=== PATIENT | female | born 1980 | race American Indian/Alaskan Native ===

== ENCOUNTER 2019-06-03 08:08 | Day surgery (SDC) | payer MEDICAID ==
[2019-06-03] MEDS ORDERED: LACTATED RINGERS 1,000 ML IV SCH (09:02)
--- NOTE | 2019-06-03 09:08 | Anesthesia Consultation ---
Anesthesia Consult and Med Hx Date of service: 06/03/19 - Airway Anesthetic Teeth Evaluation: Good ROM Head & Neck: Adequate Mental/Hyoid Distance: Adequate Mallampati Class: Class II Intubation Access Assessment: Good - Pulmonary Exam CTA: Yes - Cardiac Exam Cardiac Exam: No Murmur - Pre-Operative Health Status ASA Pre-Surgery Classification: ASA2 - Pulmonary Hx Smoking: Yes (Former) Hx Asthma: Yes - Central Nervous System Hx Psychiatric Problems: No - Other Systems Hx Alcohol Use: Yes (Occas) Hx Cancer: No
--- NOTE | 2019-06-03 09:09 | Anesthesia Day of Surgery ---
Anesthesia Day of Surgery - Day of Surgery Patient Examined: Yes Patient H&P Reviewed: Yes Patient is NPO: Yes
[2019-06-03] MEDS ORDERED: CELECOXIB 200 MG CAP PO NR (10:00)
[2019-06-03] MEDS ORDERED: GABAPENTIN 300 MG CAP PO NR (10:00)
[2019-06-03] MEDS ORDERED: FAMOTIDINE 20 MG TAB PO NR (10:00)
[2019-06-03] MEDS ORDERED: MIDAZOLAM 2 MG/2 ML INJ IV NR (10:00)
[2019-06-03] MEDS ORDERED: BUPIVACAINE/PF (0.5%) 5 MG/1 ML 30 ML VIAL INFILTRATI ONE ×2 (10:26→14:45)
--- NOTE | 2019-06-03 10:40 | Short Stay Summary ---
Short Stay Documentation Date of service: 06/03/19 Narrative H&P: 39y/o with acute onset of LLQ pain that has persists for over 2 weeks with worsening symptoms. The patient was evaluated in the ED with findings of leiomyomas and bilateral ovarian cysts. The patient states the pain is directed in the left pelvis. She requests surgical management. - History Principal diagnosis: Acute pelvic pain Past Medical History: other (asthma; fibroid) Past Surgical History: Other (tubal ligation) Social history: - Allergies and Medications Current Medications: Allergies codeine Allergy (Verified 06/02/19 15:15) Angioedema ketorolac tromethamine [From Toradol] Allergy (Verified 10/19/15 11:45) Angioedema latex Allergy (Verified 06/02/19 15:15) Rash tramadol Allergy (Verified 10/19/15 11:45) Angioedema Home Medications Medication Instructions Recorded Confirmed Last Taken Type Albuterol Sulfate [Proventil Hfa] 6.7 gm IH Q4H PRN 06/02/19 06/03/19 04/03/19 History Ibuprofen [Motrin 800 MG tab] 1 tab PO TID PRN 06/03/19 06/03/19 06/02/19 22:00 History Active Medications Famotidine (Pepcid) 20 mg PO PREOP NR Stop: 06/03/19 16:00 Last Admin: 06/03/19 10:18 Dose: 20 mg Documented by: Gabapentin (Gabapentin) 600 mg PO PREOP NR Stop: 06/03/19 13:00 Last Admin: 06/03/19 10:18 Dose: 600 mg Documented by: Lactated Ringer's (Lactated Ringers) 1,000 mls @ 100 mls/hr IV DIRECT ALONZO Last Admin: 06/03/19 10:05 Dose: 100 mls/hr Documented by: Midazolam HCl (Versed) 2 mg IV PREOP NR Stop: 06/03/19 23:59 - Physical exam General appearance: no acute distress Integumentary: no rash HEENT: Atraumatic Lungs: Clear to auscultation Breasts: deferred Heart: Regular rate Gastrointestinal: normal Female Genitourinary: deferred Rectal Exam: deferred Extremities: no ischemia Neurological: Normal gait - Brief post op/procedure progress note Date of procedure: 06/03/19 Pre-op diagnosis: acute pelvic pain Post-op diagnosis: same Procedure: Laparoscopy Left ovarian cystectomy Anesthesia: GETA Surgeon: GRANT GEORGE Estimated blood loss: minimal Pathology: list (ovarian cyst) Specimen disposition: to lab Condition: stable - Hospital course Hospital course: The patient was admitted the day of surgery and underwent a laparoscopy and ovarian cystectomy. Please see operative note for details of surgery. Postoperative course was uneventful. - Disposition Condition at discharge: Good Disposition: DC-01 TO HOME OR SELFCARE Short Stay Discharge Plan Activity: other (pelvic rest for 1 week) Diet: regular Additional Instructions: Scheduled follow-up with Dr. House in 1 week
[2019-06-03] MEDS ORDERED: PROPOFOL 200 MG/20 ML VIAL IV ONE (13:19)
[2019-06-03] MEDS ORDERED: ROCURONIUM 50 MG/5 ML INJ IV ONE (13:19)
[2019-06-03] MEDS ORDERED: LIDOCAINE MPF (2%) 20 MG/1 ML VIAL 5 ML ONE (13:19)
[2019-06-03] MEDS ORDERED: fentaNYL 100 MCG/2 ML INJ ONE ×2 (13:19→14:55)
[2019-06-03] MEDS ORDERED: dexAMETHasone 20 MG/5 ML VIAL ONE (14:10)
[2019-06-03] MEDS ORDERED: ONDANSETRON 4 MG/2 ML INJ ONE (14:10)
[2019-06-03] MEDS ORDERED: HYDROmorphone 1 MG/1 ML INJ ONE ×2 (14:12→15:32)
[2019-06-03] MEDS ORDERED: SODIUM CHLORIDE 0.9% IRRIG SOLN 2000 ML IR ONE (14:12)
[2019-06-03] MEDS ORDERED: SODIUM CHLORIDE 0.9% IRR 1,500 ML BOTTLE IR ONE (14:12)
[2019-06-03] MEDS ORDERED: GLYCOPYRROLATE 0.4 MG/2 ML INJ ONE (14:34)
[2019-06-03] MEDS ORDERED: NEOSTIGMINE 10MG/10 ML INJ MDV ONE (14:34)
--- NOTE | 2019-06-03 14:56 | Operative Report ---
Operative Report Operative Report: Date of surgery: 06/03/2019 Preoperative diagnosis: Acute pelvic pain; ovarian cyst; leiomyoma Postoperative diagnosis: Same as above Procedure: Laparoscopy; left ovarian cystectomy Surgeon: Laura House M.D. Anesthesia: General endotracheal anesthesia Estimated blood loss: Minimal Findings: Pedunculated leiomyoma; left ovarian cyst Pathology: Ovarian cyst Indication: 39-year-old with a history of worsening pelvic pain. Pelvic ultrasound demonstrated evidence of a leiomyoma and ovarian cyst. The patient elected to undergo surgical management. Procedure: The patient was taken to the operating room and given general endotracheal anesthesia without complication. The patient is prepped and draped in a normal sterile fashion. A bivalve speculum was placed in the patient's vagina and a single-tooth tenaculum was placed on the anterior lip of the cervix .A uterine acorn manipulator was placed, and the bivalve speculum was then removed. Attention was then turned to the patient's abdomen where a 5 mm infraumbilical skin incision was then made. A Veress needle was placed and peritoneal entry was verified water-filled syringe. Insufflation of the peritoneal cavity was performed with CO2 gas. A 5 mm trocar was placed and the laparoscope was then inserted. The patient was then placed in Trendelenburg. A 10 mm suprapubic skin incision was then made. Under direct visualization a 10 mm trocar was then placed. An additional left lateral 5 mm trocar was also placed under direct visualization. General survey of the patient's abdomen revealed a pedunculated leiomyoma originating from the fundus of the uterus the left ovary had evidence of a complex ovarian cyst. The tubes were consistent with a prior tubal ligation. The right ovary was normal in appearance. The left ovary was then grasped. The monopolar scissors were used to excise the ovarian cortex. The ovarian cyst was transected from the ovarian tissue. Hemoblast was placed over the left ovary. An Endo Catch bag was placed through the 10 mm trocar. The intact ovarian cyst were placed in the bag and removed. The fascial defect of the 10 mm incision was closed with 0 Vicryl using the Kevin Greer device. The 10 and 5 mm trocar were then removed. The pneumoperitoneum was then released. The 5 mm trocar laparoscope was then removed. The skin incisions were then closed with 4-0 Monocryl. The incisions were injected with quarter percent Marcaine. Dressings were applied to the incision. The vaginal instruments were then removed atraumatically. Then successfully extubated and taken to the recovery room. All sponge laps and needle counts were correct x2.
[2019-06-03] MEDS: HYDROmorphone 1 MG/1 ML INJ IV PRN ×2 (15:30→15:46)
[2019-06-03 15:37] VITALS: BP 127/71
== END 2019-06-03 08:09 | disposition home or self-care (01) ==
LOC: OR 08:08
PROVIDERS: ATTEND Obstetrics & Gynecology
DX: N83.202 Unspecified ovarian cyst, left side (principal); J45.909 Unspecified asthma, uncomplicated; Z87.891 Personal history of nicotine dependence; Z91.040 Latex allergy status; Z88.5 Allergy status to narcotic agent; Z88.8 Allergy status to other drugs, medicaments and biological substances; Z90.49 Acquired absence of other specified parts of digestive tract; Z98.51 Tubal ligation status; Z72.89 Other problems related to lifestyle; Z98.890 Other specified postprocedural states; Z86.711 Personal history of pulmonary embolism
CPT/HCPCS: 58662; 81025; 88305; A4217; J1100; J1170; J2250; J2405; J2704; J2710; J3010; J7120

== ENCOUNTER 2019-11-30 11:06 | Day surgery (SDC) | payer MEDICAID | END 2019-12-02 23:59 | disposition home or self-care (01) | LOC: OR 11:06 | PROVIDERS: ATTEND Obstetrics & Gynecology | DX: L91.0 Hypertrophic scar (principal); Z11.59 Encounter for screening for other viral diseases; Z53.8 Procedure and treatment not carried out for other reasons; J45.909 Unspecified asthma, uncomplicated; K21.9 Gastro-esophageal reflux disease without esophagitis; E66.9 Obesity, unspecified; Z88.5 Allergy status to narcotic agent; Z91.040 Latex allergy status; Z79.899 Other long term (current) drug therapy; Z87.891 Personal history of nicotine dependence; Z86.711 Personal history of pulmonary embolism; Z90.49 Acquired absence of other specified parts of digestive tract; Z98.51 Tubal ligation status; Z72.89 Other problems related to lifestyle; Z98.890 Other specified postprocedural states; Z80.41 Family history of malignant neoplasm of ovary; Z88.8 Allergy status to other drugs, medicaments and biological substances; Z68.41 Body mass index [BMI] 40.0-44.9, adult | CPT/HCPCS: U0003-CS ==

== ENCOUNTER 2019-12-03 10:37 | Day surgery (SDC) | payer MEDICAID ==
--- NOTE | 2019-12-03 09:44 | Short Stay Summary ---
Short Stay Documentation Date of service: 12/03/19 Narrative H&P: 39y/o with a history of hypertrophic scar formation. She has a large pedunculated lesion in her right axilla and multiple lesions on her mons. She reports pain and discomfort. She states feeling disfigured by the lesions. - History Principal diagnosis: Keloid scar Past Medical History: other (asthma) Past Surgical History: Other (laparoscopy/ovarian cystectomy; tubal ligation) Social history: - Allergies and Medications Current Medications: Allergies codeine Allergy (Verified 11/25/19 10:06) Angioedema ketorolac tromethamine [From Toradol] Allergy (Verified 11/25/19 10:06) Angioedema latex Allergy (Verified 11/25/19 10:06) Rash tramadol Allergy (Verified 11/25/19 10:06) Angioedema Home Medications Medication Instructions Recorded Confirmed Last Taken Type Albuterol Sulfate [Proventil Hfa] 6.7 gm IH Q4H PRN 06/02/19 11/25/19 04/03/19 History Fluticasone/Salmeterol(Nf) [Advair 2 puff IH PRN PRN 11/25/19 11/25/19 Unknown History HFA 115-21 mcg] Multivitamins Liq [Multiple 118 ml PO DAILY 11/25/19 11/25/19 Unknown History Vitamin Liq (Theragran)] - Physical exam General appearance: no acute distress Integumentary: no rash HEENT: Atraumatic Lungs: Clear to auscultation Breasts: deferred Heart: Regular rate Gastrointestinal: normal Female Genitourinary: deferred Rectal Exam: deferred - Brief post op/procedure progress note Date of procedure: 12/03/19 Pre-op diagnosis: Hypertrophic scar Post-op diagnosis: same Procedure: Keloid scar revision Anesthesia: MAC Surgeon: GRANT GEORGE Estimated blood loss: minimal Pathology: list (Keloid scar) Specimen disposition: to lab Condition: stable - Hospital course Hospital course: The patient was admitted the day of surgery underwent excision revision of her hypertrophic scar. Please see operative note for details of surgery. Postoperative course was uneventful. - Disposition Condition at discharge: Good Disposition: DC-01 TO HOME OR SELFCARE - Discharge Diagnoses (1) Hypertrophic scar of skin Status: Acute Short Stay Discharge Plan Activity: no restrictions Diet: regular Additional Instructions: Schedule follow-up with Dr. George in 2 weeks Prescriptions: Ibuprofen [Motrin] 800 mg PO Q8HR PRN #30 tablet PRN Reason: Pain , Severe (7-10) HYDROcodone/APAP 5-325 [[place] 5/325] 1 each PO Q6HR PRN #15 tablet PRN Reason: Pain
[~2019-12-03 10:37] MED LIST: TRIAMCINOLONE 40 MG/1 ML INJ IM ONE; ceFAZolin/Water 2 GM/20 ML 2 GM/20 ML SYRINGE IV NR
[2019-12-03] MEDS ORDERED: ONDANSETRON 4 MG/2 ML INJ IV PRN (11:38)
--- NOTE | 2019-12-03 11:39 | Anesthesia Day of Surgery ---
Anesthesia Day of Surgery - Day of Surgery Patient Examined: Yes Patient H&P Reviewed: Yes Patient is NPO: Yes
--- NOTE | 2019-12-03 11:40 | Anesthesia Consultation ---
Anesthesia Consult and Med Hx Date of service: 12/03/19 - Airway Anesthetic Teeth Evaluation: Good ROM Head & Neck: Adequate Mental/Hyoid Distance: Adequate Mallampati Class: Class II Intubation Access Assessment: Good - Pre-Operative Health Status ASA Pre-Surgery Classification: ASA2 Proposed Anesthetic Plan: General - Pulmonary Hx Smoking: Yes (Former; QUIT 2016) Hx Asthma: Yes (PRN INHALER) Hx Respiratory Symptoms: No (+2FS) - Central Nervous System Hx Psychiatric Problems: No - Gastrointestinal Hx Ulcer: Yes (2005) - Other Systems Hx Alcohol Use: Yes (Occas) Hx Substance Use: No Hx Cancer: No Hx Obesity: Yes (BMI 41)
[2019-12-03] MEDS ORDERED: LACTATED RINGERS 1,000 ML IV SCH (12:00)
[2019-12-03] MEDS ORDERED: diphenhydrAMINE 50 MG CAP PO NR (12:00)
[2019-12-03] MEDS ORDERED: MIDAZOLAM 2 MG/2 ML INJ IV NR (12:00)
[2019-12-03] MEDS ORDERED: FAMOTIDINE 20 MG TAB PO NR (12:00)
[2019-12-03] MEDS ORDERED: dexAMETHasone 20 MG/5 ML VIAL ONE (12:20)
[2019-12-03] MEDS ORDERED: LIDOCAINE MPF (2%) 20 MG/1 ML VIAL 5 ML ONE (12:20)
[2019-12-03] MEDS ORDERED: ONDANSETRON 4 MG/2 ML INJ ONE (12:20)
[2019-12-03] MEDS ORDERED: propofoL 200 MG/20 ML VIAL IV ONE ×2 (12:21→12:44)
[2019-12-03] MEDS ORDERED: fentaNYL 100 MCG/2 ML INJ ONE (12:21)
[2019-12-03] MEDS ORDERED: TRIAMCINOLONE 40 MG/1 ML INJ IM ONE ×2 (12:45→13:25)
[2019-12-03] MEDS ORDERED: HYDROmorphone 1 MG/1 ML INJ ONE (13:00)
[2019-12-03] MEDS ORDERED: SODIUM CHLORIDE 0.9% IRR 1,500 ML BOTTLE IR ONE (13:29)
--- NOTE | 2019-12-03 13:49 | Operative Report ---
Operative Report Operative Report: Date of procedure: December 03, 2019 Pre-operative diagnosis: Hypertrophic keloid scar Post-operative diagnosis: Same as above Procedure name(s): Keloid scar revision Surgeon: Laura He M.D. Lens Molder: None Estimated blood loss: Minimal Anesthesia: LMA Findings: Pedunculated hypertrophic scar in the right axilla; 4 hypertrophic scars involving the mons pubis Indication: 39-year-old -1-1-3 with a history of multiple keloid scars. The patient requested a removal and revision of the scar. Procedure The patient was taken to the operating room. Her general anesthesia was initiated. A timeout was performed that identified the patient and the procedure. The patient was prepped and draped in a normal sterile fashion. Attention was then turned to the patient's right axilla where she exhibited a large keloid scar that was pedunculated. The #15 blade was used to excise the p edunculated mass. The skin was reapproximated with 4-0 Monocryl in a subcuticular fashion. Attention was then turned to the patient's mons pubis. She had evidence of 4-5 keloid scars. The scar was grasped with a grasper. The lesions were excised with a #15 blade. The tissue bed was cauterized for hemostasis. The skin was reapproximated with 4-0 Monocryl in a subcuticular fashion. The surgical sites were injected with Kenalog 40 mg total of 8 mm were injected in multiple sites. Pressure dressing was placed across the incision. The patient was successfully extubated and taken to recovery room in stable condition. Pathology consisted of hypertrophic scars. All sponge laps and needle counts were correct x2
[2019-12-03] MEDS ORDERED: TRIAMCINOLONE 40 MG/1 ML INJ INTRALESIO SCH (14:00)
[2019-12-03] MEDS ORDERED: TRIAMCINOLONE 40 MG/1 ML INJ IM SCH (14:00)
[2019-12-03] MEDS: fentaNYL 100 MCG/2 ML INJ IV PRN ×2 (14:12→14:25)
[2019-12-03 15:57] VITALS: BP 125/77
--- NOTE | 2019-12-03 16:16 | Post Anesthesia Evaluation ---
- Post Anesthesia Evaluation Patient Participated: Yes Airway Patent: Yes Stable Respiratory Function: Yes Nausea/Vomiting: No Temp > 96.8F: Yes Pain Manageable: Yes Adequeate Hydration: Yes Anesthesia Complications: No Block Receding Appropriately: Not Applicable Patient on Ventilator: No
== END 2019-12-03 10:38 | disposition home or self-care (01) ==
LOC: OR 10:37
PROVIDERS: ATTEND Obstetrics & Gynecology
DX: L91.0 Hypertrophic scar (principal); J45.909 Unspecified asthma, uncomplicated; K21.9 Gastro-esophageal reflux disease without esophagitis; E66.9 Obesity, unspecified; Z88.5 Allergy status to narcotic agent; Z91.040 Latex allergy status; Z79.899 Other long term (current) drug therapy; Z90.49 Acquired absence of other specified parts of digestive tract; Z98.51 Tubal ligation status; Z72.89 Other problems related to lifestyle; Z98.890 Other specified postprocedural states; Z86.711 Personal history of pulmonary embolism; Z80.41 Family history of malignant neoplasm of ovary; Z68.41 Body mass index [BMI] 40.0-44.9, adult; Z88.8 Allergy status to other drugs, medicaments and biological substances
CPT/HCPCS: 11406; 81025; 88305; J0690; J1100; J1170; J2405; J2704; J3010; J3301; J7120

== ENCOUNTER 2020-02-24 07:56 | Observation (INO) | payer MEDICAID ==
[2020-02-23 09:25] LABS: Basophils # (Auto) 0.1 K/mm3 (0.0-0.1); Basophils % (Auto) 0.8 % (0.0-1.8); Eosinophils # (Auto) 0.2 K/mm3 (0.0-0.4); Eosinophils % (Auto) 1.6 % (0.0-4.3); Hematocrit 34.8 % (30.3-42.9); Hemoglobin 11.5 gm/dl (10.1-14.3); Lymphocytes # (Auto) 3.2 K/mm3 (1.2-5.4); Lymphocytes % (Auto) 27.6 % (13.4-35.0); Mean Corpuscular HGB Conc 33 % (30-34); Mean Corpuscular Volume 83 fl (79-97); Monocytes # (Auto) 0.6 K/mm3 (0.0-0.8); Monocytes % (Auto) 4.9 % (0.0-7.3); Platelet Count 438 K/mm3 (140-440); Red Cell Distribution Width 15.3 % (13.2-15.2)
--- NOTE | 2020-02-23 17:06 | History and Physical Report ---
History of Present Illness Date of examination: 02/24/20 Date of admission: 02/24/2020 Chief complaint: uterine fibroids History of present illness: 39y/o with symptomatic uterine fibroids. The patient reports heavy painful menses. Pelvic ultrasound demonstrated a uterine size of 9.4cm with the largest myoma being 3.1cm. Other treatment options have been discussed. The patient elects to proceed with a robotic hysterectomy and salpingectomy. Past History Past Medical History: asthma, other (uterine fibroids) Past Surgical History: other (laparoscopy/ovarian cystectomy; Tubal ligation) Social history: - Obstetrical History : 5 Para: 3 Hx # Term Pregnancies: 3 Number of Pregnancies: 1 Spontaneous Abortions: 1 Induced : 0 Number of Living Children: 3 Medications and Allergies Allergies Allergy/AdvReac Type Severity Reaction Status Date / Time codeine Allergy Angioedema Verified 02/17/20 16:42 ketorolac tromethamine Allergy Angioedema Verified 02/17/20 16:42 [From Toradol] latex Allergy Rash Verified 02/17/20 16:42 tramadol Allergy Angioedema Verified 02/17/20 16:42 Home Medications Medication Instructions Recorded Confirmed Last Taken Type Albuterol Sulfate [Proventil Hfa] 6.7 gm IH Q4H PRN 06/02/19 02/17/20 04/03/19 History Fluticasone/Salmeterol(Nf) [Advair 2 puff IH PRN PRN 11/25/19 02/17/20 11/26/19 09:00 History HFA 115-21 mcg] Ibuprofen [Motrin] 800 mg PO Q8HR PRN 02/17/20 02/17/20 Unknown History Naproxen [Naprosyn] 500 mg PO BID PRN 02/17/20 02/17/20 Unknown History Active Meds: Active Medications Acetaminophen (Tylenol) 1,000 mg PO PREOP ALONZO Stop: 02/24/20 22:00 Fentanyl (Sublimaze) 100 mcg IV ONCE PRN PRN Reason: sedation for nerve block Stop: 02/24/20 22:00 Gabapentin (Gabapentin) 600 mg PO PREOP NR Stop: 02/24/20 22:00 Lactated Ringer's (Lactated Ringers) 1,000 mls @ 100 mls/hr IV DIRECT ALONZO Stop: 02/24/20 23:59 Midazolam HCl (Versed) 2 mg IV PREOP NR Stop: 02/24/20 22:00 Review of Systems All systems: negative Genitourinary: vaginal bleeding, pelvic pain - Vital Signs Vital signs: Vital Signs Temp Pulse Resp BP Pulse Ox 98.4 F 72 20 137/91 100 02/23/20 09:00 02/23/20 09:00 02/23/20 09:00 02/23/20 09:00 02/23/20 09:00 Temp Pulse Resp BP Pulse Ox 98.4 F 72 20 137/91 100 02/23/20 09:00 02/23/20 09:00 02/23/20 09:00 02/23/20 09:00 02/23/20 09:00 - Physical Exam Breasts: Positive: deferred Cardiovascular: Regular rate Lungs: Positive: Clear to auscultation Abdomen: Positive: normal appearance Results Result Diagrams: 02/22/20 09:10 Abnormal lab results 02/22/20 Range/Units 09:10 WBC 11.5 H (4.5-11.0) K/mm3 MCH 27 L (28-32) pg RDW 15.3 H (13.2-15.2) % All other labs normal. Assessment and Plan - Patient Problems (1) Leiomyoma Status: Acute Plan to address problem: scheduled for robotic hysterectomy and bilateral salpingectomy (2) Dysmenorrhea Status: Acute (3) Pelvic pain in female Status: Acute
[~2020-02-24 07:56] MED LIST changes: +ACETAMINOPHEN 500 MG TAB PO SCH; +GABAPENTIN 300 MG CAP PO NR; +LACTATED RINGERS 1,000 ML IV SCH; +MIDAZOLAM 2 MG/2 ML INJ IV NR; -TRIAMCINOLONE 40 MG/1 ML INJ IM ONE; +fentaNYL 100 MCG/2 ML INJ IV PRN
[2020-02-24] MEDS ORDERED: BUPIVACAINE-EPINEPHRINE/PF 0.25%-1:200,000 (10 ML) VIAL INFILTRATI ONE (08:20)
[2020-02-24] MEDS ORDERED: dexAMETHasone 4 MG/ML VIAL ONE (08:20)
[2020-02-24] MEDS ORDERED: ONDANSETRON 4 MG/2 ML INJ IV PRN (08:26)
[2020-02-24] MEDS ORDERED: SCOPOLAMINE TRANSDERMAL PATCH 72 HR TD ONE (09:10)
--- NOTE | 2020-02-24 09:30 | Anesthesia Day of Surgery ---
Anesthesia Day of Surgery - Day of Surgery Patient Examined: Yes Patient H&P Reviewed: Yes Patient is NPO: Yes
--- NOTE | 2020-02-24 09:30 | Anesthesia Consultation ---
Anesthesia Consult and Med Hx Date of service: 02/24/20 - Airway Anesthetic Teeth Evaluation: Good ROM Head & Neck: Adequate Mental/Hyoid Distance: Adequate Mallampati Class: Class III Intubation Access Assessment: Possibly Difficult - Pulmonary Exam CTA: Yes - Cardiac Exam Cardiac Exam: RRR - Pre-Operative Health Status ASA Pre-Surgery Classification: ASA2 Proposed Anesthetic Plan: General Nerve Block: TAP - Pulmonary Hx Smoking: Yes (former smoker; quit 2016) Hx Asthma: Yes (last inhaler use 3 months) Hx Respiratory Symptoms: No - Cardiovascular System Hx Hypertension: No Hx Heart Attack/AMI: No Hx Percutaneous Transluminal Coronary Angioplasty (PTCA): No Hx Cardia Arrhythmia: No - Central Nervous System CVA: No - Gastrointestinal Hx Gastroesophageal Reflux Disease: Yes - Endocrine Hx Renal Disease: No Hx Liver Disease: No Hx Insulin Dependent Diabetes: No Hx Non-Insulin Dependent Diabetes: No Hx Thyroid Disease: No - Hematic Hx Anemia: Yes - Other Systems Hx Obesity: Yes (BMI 37) - Additional Comments Anesthesia Medical History Comments: No hx anesthetic complications but has significant nausea with PO opioids.
[2020-02-24] MEDS ORDERED: HYDROmorphone 1 MG/1 ML INJ ONE ×2 (10:10→12:32)
[2020-02-24] MEDS ORDERED: propofoL 200 MG/20 ML VIAL IV ONE (10:10)
[2020-02-24] MEDS ORDERED: ROCURONIUM 50 MG/5 ML INJ IV ONE (10:10)
[2020-02-24] MEDS ORDERED: LIDOCAINE MPF (2%) 20 MG/1 ML VIAL 5 ML ONE (10:10)
[2020-02-24] MEDS ORDERED: NEOMY 40 MG/POLYMYXIN B 200,000 UNITS/ML (GU) AMPULE IR ONE ×2 (10:15→11:56)
[2020-02-24] MEDS ORDERED: dexAMETHasone 20 MG/5 ML VIAL ONE (11:21)
[2020-02-24] MEDS ORDERED: ONDANSETRON 4 MG/2 ML INJ ONE (11:21)
[2020-02-24] MEDS ORDERED: TRIAMCINOLONE 40 MG/1 ML INJ ONE (11:36)
[2020-02-24] MEDS ORDERED: fentaNYL 100 MCG/2 ML INJ ONE (11:46)
--- NOTE | 2020-02-24 11:48 | Operative Report ---
Operative Report Operative Report: Date of surgery: February 24, 2020 Preoperative diagnoses: Symptomatic uterine fibroids; dysmenorrhea Postoperative diagnoses: Same as above Procedure: Robotic hysterectomy; bilateral salpingectomy Surgeon: Laura He M.D. Core Inspector: Caroline Barr Anesthesia: Gen. endotracheal anesthesia Estimated blood loss: 100 mL Pathology: Uterus, cervix, bilateral fallopian tubes, leiomyoma Indication: 39-year-old -1-1-3 with a history of symptomatic uterine fibroids. The patient is elected to undergo definitive surgical management. Procedure: The patient was taken to the operating room and given general endotracheal anesthesia without complication. She is prepped and draped in a normal sterile fashion. A bivalve speculum was placed in the patient's vagina and a single- tooth tenaculum placed on the anterior lip of the cervix. The uterus was sounded with the uterine sound. A [employer] uterine manipulator was placed in the bivalve speculum was then removed. Attention was then turned to the patient's abdomen where a millimeter supra umbilical skin incision was then made. A Veress needle was placed and peritoneal entry was verified water-filled syringe. Insufflation of the peritoneal cavity was performed with CO2 gas. The 12 mm trocar was then placed under direct visualization. An additional 8 mm trocar was placed on the patient's left and right lateral side just opposite of the supraumbilical trocar. An additional 8 mm right lateral trocar was then placed as the accessory port. The supraumbilical 12 mm trocar site was closed with the Kevin Greer device and 0-vicryl suture. The patient was then placed in steep Trendelenburg. The da Kyleigh robot was then engaged. A fenestrated forcep was placed in arm 2 and a vessel sealer was placed in arm 1. General survey of the abdomen and pelvis revealed an enlarged fibroid uterus with a sub-serosal leiomyoma on the fundus of the uterus. She had a small left ovarian cyst. The tubes were normal in appearance. Incidental cystotomy of the ovarian cyst was performed with evidence of clear fluid. The surgeon then transferred to the surgical console. The mesosalpinx was then isolated on the right. The vessel sealer was used to coagulate the mesosalpinx which was then transected. The tube was transected from the ovary. The tubo-ovarian ligament was then coagulated and transected. The round ligament was then coagulated and transected also. The vesicouterine peritoneum was then entered from the patient's right side. The uterine vessels were then coagulated with the vessel sealer. The vessels were then transected . Attention was then turned to the patient's left side where the tubo-ovarian ligament and mesosalpinx were again isolated coagulated and transected. The vesical peritoneum was then entered from the left and joined in the midline. Peritoneum was reflected off of the lower uterine segment. Uterine vessels were then coagulated and then transected. The blood supply to the uterus was adequately contained, a posterior colpotomy was made. The V care ring was visualized. Posterior colpotomy was created with the monopolar scissors. The incision was continued circumferentially until anterior colpotomy was made. The cervix and uterus were amputated from the vaginal cuff. The uterus was then removed along with the leiomyoma and tubes bilaterally through the vagina and a warm laparotomy sponge was placed and maintain the pneumoperitoneum. The vaginal cuff was then closed in a running fashion with V lock suture. Irrigation of the pelvis was performed. Hemoblast was applied to the incision. The skin was then reapproximated with 4-0 Monocryl. The tissue was sent to pathology which included the cervix, bilateral tubes and uterus. The patient was then successfully extubated. She was then taken to the recovery room in stable condition. All sponge laps and needle counts were correct x2.
[2020-02-24] MEDS ORDERED: MAGNESIUM HYDROXIDE (MOM) ORAL LIQD UDC PO PRN (11:51)
[2020-02-24] MEDS ORDERED: ACETAMINOPHEN 325 MG TAB PO PRN (11:51)
[2020-02-24] MEDS ORDERED: HYDROcodone/ACETAMINOPHEN 5-325 MG TAB PO PRN (11:51)
[2020-02-24] MEDS ORDERED: SODIUM CHLORIDE 0.9% IRR 1,500 ML BOTTLE IR ONE (11:56)
[2020-02-24] MEDS ORDERED: SODIUM CHLORIDE 0.9% IRRIG SOLN 2000 ML IR ONE (11:56)
[2020-02-24] MEDS ORDERED: TRIAMCINOLONE 40 MG/1 ML INJ IM ONE (11:57)
[2020-02-24] MEDS ORDERED: GLYCOPYRROLATE 0.4 MG/2 ML INJ ONE ×2 (12:00→12:10)
[2020-02-24] MEDS ORDERED: NEOSTIGMINE 10MG/10 ML INJ MDV ONE (12:10)
[2020-02-24] MEDS: HYDROmorphone 1 MG/1 ML INJ IV PRN ×3 (12:16→12:40)
[2020-02-24] MEDS ORDERED: LACTATED RINGERS 1,000 ML ONE (12:37)
[2020-02-24] MEDS: MORPHINE 4 MG/1 ML INJ IV PRN ×3 (13:53→23:39)
[2020-02-24] MEDS: ONDANSETRON 4 MG/2 ML INJ IV PRN ×2 (16:41→23:39)
--- NOTE | 2020-02-24 17:58 | Post Anesthesia Evaluation ---
- Post Anesthesia Evaluation Patient Participated: Yes Airway Patent: Yes Stable Respiratory Function: Yes Nausea/Vomiting: No Temp > 96.8F: Yes Pain Manageable: Yes Adequeate Hydration: Yes Anesthesia Complications: No
[2020-02-24] MEDS: IBUPROFEN 600 MG TAB PO SCH ×2 (18:24→18:25)
[2020-02-24] MEDS: D5W/LACTATED RINGERS 1,000 ML IV SCH (21:58)
[2020-02-25] MEDS: MORPHINE 4 MG/1 ML INJ IV PRN ×3 (04:15→19:53)
[2020-02-25] MEDS: D5W/LACTATED RINGERS 1,000 ML IV SCH ×2 (06:05→14:55)
[2020-02-25] MEDS: IBUPROFEN 600 MG TAB PO SCH ×4 (06:22→14:56)
[2020-02-25 06:30] LABS: Hematocrit 33.1 % (30.3-42.9); Hemoglobin 10.8 gm/dl (10.1-14.3)
--- NOTE | 2020-02-25 08:13 | Progress Note ---
Assessment and Plan A: POD#1 s/p robotic hysterectomy P: Routine advances Subjective - Subjective Date of service: 02/25/20 Principal diagnosis: s/p robotic hysterectomy Interval history: Pt reports 4 episodes of emesis yesterday and pain this morning. Voiding. Patient reports: appetite normal, voiding normally, pain well controlled, ambulating normally Objective - Vital Signs Latest vital signs: Vital Signs Temp Pulse Resp BP BP Pulse Ox 02/25/20 00:06 98.2 F 70 20 122/68 93 02/24/20 19:51 98.1 F 62 20 106/61 94 02/24/20 19:24 20 02/24/20 16:00 98 F 63 18 103/62 98 02/24/20 13:00 12 02/24/20 12:52 54 L 12 109/62 100 02/24/20 12:46 16 02/24/20 12:42 98.1 F 58 L 12 98/65 100 02/24/20 12:40 16 02/24/20 12:30 16 02/24/20 12:27 56 L 16 112/62 100 02/24/20 12:22 54 L 16 107/65 100 02/24/20 12:17 59 L 16 105/63 100 02/24/20 12:12 97.9 F 64 18 104/61 100 02/24/20 10:10 18 02/24/20 10:04 87 18 114/68 99 02/24/20 09:54 87 20 117/72 99 02/24/20 09:40 89 20 119/63 99 02/24/20 09:19 94 H 16 141/80 100 02/24/20 09:15 57 L 17 133/85 100 02/24/20 09:10 80 18 131/88 100 02/24/20 08:50 20 02/24/20 08:40 97.8 F 88 20 125/84 100 02/24/20 08:35 97.6 F 61 22 110/62 96 Intake and Output 02/24/20 02/25/20 02/25/20 22:59 06:59 14:59 Intake Total 480 1000 Output Total 575 500 Balance -95 500 Intake: IV 1000 D5lr 1,000 ml @ 125 mls/ 1000 hr IV DIRECT ALONZO Rx#: [id number] Oral 480 Output: Urine 325 500 Indwelling Catheter 325 500 Other 250 Other: Total, Intake Amount 240 Total, Output Amount 150 500 - Exam Breasts: Present: deferred Abdomen: Present: soft (obese ) Incision: Present: intact
[2020-02-26] MEDS: IBUPROFEN 600 MG TAB PO SCH ×3 (00:51→13:12)
--- NOTE | 2020-02-26 12:23 | Progress Note ---
Assessment and Plan A: POD#2 s/p robotic hysterectomy P: Discharge today with follow up in [address] He Subjective - Subjective Date of service: 02/26/20 Principal diagnosis: s/p robotic hysterectomy Interval history: Pt feeling much better today. + flatus. Tolerating regular diet. Patient reports: appetite normal, voiding normally, pain well controlled, ambulating normally Objective - Vital Signs Latest vital signs: Vital Signs Temp Pulse Resp Resp BP BP Pulse Ox 02/26/20 08:06 97.9 F 56 L 18 128/78 95 02/26/20 05:31 97.9 F 52 L 20 113/67 100 02/26/20 01:03 98.0 F 57 L 20 124/62 98 02/26/20 00:51 20 02/25/20 21:05 98.6 F 74 20 120/70 93 02/25/20 19:53 20 20 02/25/20 15:24 98.2 F 69 20 112/63 96 02/25/20 12:36 98.0 F 59 L 20 130/69 96 Intake and Output 02/25/20 02/26/20 02/26/20 22:59 06:59 14:59 Intake Total 920 320 Output Total 400 Balance 520 320 Intake: Oral 920 200 Intake, Free Water 120 Output: Urine 400 Void 400 Other: Total, Intake Amount 200 200 Total, Output Amount 400 Voiding Method Toilet # Voids Void 1 # Bowel Movements 0 - Exam Breasts: Present: deferred Abdomen: Present: soft (obese) Extremities: Present: normal Incision: Present: intact
--- NOTE | 2020-02-26 12:23 | Discharge Summary ---
Providers - Providers Date of Admission: 02/24/20 11:51 Date of discharge: 02/26/20 Attending physician: GRANT GEORGE Primary care physician: VAHE MYERS Hospitalization Reason for admission: other (Hysterectomy ) Procedure: other (Robotic hysterectomy, bilateral salpingectomy ) Procedure details: See operative report Incision: intact Hospital course: Pt underwent robotic hysterectomy which she tolerated well. Her postoperative course was complicated by delayed return of bowel function and met discharge criteria on POD#2. She will follow up in [address] George. Condition at discharge: Stable Disposition: DC-01 TO HOME OR SELFCARE - Discharge Diagnoses (1) Obesity (BMI 35.0-39.9 without comorbidity) Status: Acute (2) Dysmenorrhea Status: Acute (3) Leiomyoma Status: Acute Plan - Discharge Medications Prescriptions: Ibuprofen [Motrin] 800 mg PO Q8HR PRN #60 tablet PRN Reason: Pain , Severe (7-10) HYDROcodone/APAP 5-325 [[place] 5/325] 1 each PO Q6HR PRN #30 tablet PRN Reason: Pain - Provider Discharge Summary Activity: routine, no sex for 6 weeks, no heavy lifting 4 weeks, no strenuous exercise Diet: routine Instructions: routine Additional instructions: [] Smoking cessation referral if applicable(refer to patient education folder for contact #) [] Refer to [facility] Booklet Call your doctor immediately for: * Fever > 100.5 * Heavy vaginal bleeding ( >1 pad per hour) * Severe persistent headache * Shortness of breath * Reddened, hot, painful area to leg or breast * Drainage or odor from incision. * Keep incision clean and dry at all times and follow doctor's instructions regarding bathing/showering - Follow up plan Follow up: VAHE MYERS MD [Primary Care Provider] - 7 Days GRANT GEORGE MD [Staff Physician] - 03/24/20 (Please call to schedule a postop appt )
[2020-02-26 14:30] VITALS: BP 122/80
== END 2020-02-26 14:30 | disposition home or self-care (01) ==
LOC: OR 07:56 → OB 11:51
PROVIDERS: ADMIT Obstetrics & Gynecology; ATTEND Obstetrics & Gynecology
DX: D25.0 Submucous leiomyoma of uterus (principal); Z20.828 Contact with and (suspected) exposure to other viral communicable diseases; D25.1 Intramural leiomyoma of uterus; D25.2 Subserosal leiomyoma of uterus; N94.6 Dysmenorrhea, unspecified; J45.909 Unspecified asthma, uncomplicated; E66.9 Obesity, unspecified; Z79.51 Long term (current) use of inhaled steroids; Z79.899 Other long term (current) drug therapy; Z88.6 Allergy status to analgesic agent; Z88.5 Allergy status to narcotic agent; Z91.040 Latex allergy status; Z68.37 Body mass index [BMI] 37.0-37.9, adult
CPT/HCPCS: 36415; 58573; 64450; 84703; 85014; 85018; 85025; 86850; 86900; 86901; 88307; 96361; 96372; 96374; 96375; 96376; A4217; G0378; J0690; J1100; J1170; J2250; J2270; J2405; J2704; J2710; J3010; J3301; J7120; J7121; S2900; U0003; 88309